=== PATIENT | female | born 1950 | race Caucasian/White ===

== ENCOUNTER 2021-03-12 14:20 | Emergency (ER) | payer OTHER, MEDICARE ==
[2021-03-12] MEDS ORDERED: Boostrix 0.5 ML (Tdap) VIAL ONE (15:08)
== END 2021-03-12 16:16 | disposition home or self-care (01) ==
LOC: CSHERS 14:20
DX: S01.01XA Laceration without foreign body of scalp, initial encounter (principal); I10 Essential (primary) hypertension; E78.00 Pure hypercholesterolemia, unspecified; I25.2 Old myocardial infarction; W01.198A Fall on same level from slipping, tripping and stumbling with subsequent striking against other object, initial encounter; Z23 Encounter for immunization; Z95.5 Presence of coronary angioplasty implant and graft; Z86.73 Personal history of transient ischemic attack (TIA), and cerebral infarction without residual deficits; Z90.5 Acquired absence of kidney
CPT/HCPCS: 70450; 90471; 90715; 93005